=== PATIENT | female | born 1935 | race Caucasian/White ===

== ENCOUNTER 2018-03-12 07:19 | Day surgery (SDC) | payer OTHER, MEDICAID ==
[2018-03-12] MEDS ORDERED: SIMETHICONE 40 MG/0.6 ML ML ONE (07:44)
[2018-03-12] MEDS: MIDAZOLAM HCL 5 MG/5 ML VIAL ONE ×3 (09:04→09:10)
[2018-03-12] MEDS: MEPERIDINE HCL/PF 100 MG/ML AMP ONE ×2 (09:04→09:08)
[2018-03-12 13:23] VITALS: BP_SYST 143
== END 2018-03-12 11:30 | disposition home or self-care (01) ==
LOC: SDS 07:19
PROVIDERS: ATTEND Internal Medicine Gastroenterology
DX: K22.2 Esophageal obstruction (principal); K21.9 Gastro-esophageal reflux disease without esophagitis; K20.9 Esophagitis, unspecified; K29.50 Unspecified chronic gastritis without bleeding; K44.9 Diaphragmatic hernia without obstruction or gangrene; E07.9 Disorder of thyroid, unspecified; D64.9 Anemia, unspecified; K59.00 Constipation, unspecified; J45.909 Unspecified asthma, uncomplicated; E03.9 Hypothyroidism, unspecified; Z87.891 Personal history of nicotine dependence
CPT/HCPCS: 36415; 43239; 43249; 87081; 88305; 88312; 88313; J2175; J2250

== ENCOUNTER 2018-05-21 08:30 | Day surgery (SDC) | payer OTHER, MEDICAID ==
[~2018-05-21] VITALS: Ht 167.6 cm; Wt 54.4 kg
[2018-05-21] MEDS ORDERED: MEPERIDINE HCL/PF 100 MG/ML AMP ONE (09:34)
[2018-05-21] MEDS ORDERED: MIDAZOLAM HCL 5 MG/5 ML VIAL ONE (09:34)
[2018-05-21] MEDS ORDERED: SIMETHICONE 40 MG/0.6 ML ML ONE (09:35)
[2018-05-21] MEDS ORDERED: MEPERIDINE HCL/PF 25 MG/ML DISP.SYRIN ONE (10:03)
[2018-05-21 14:14] VITALS: BP_SYST 138
== END 2018-05-21 11:15 | disposition home or self-care (01) ==
LOC: SDS 08:30 → SMU 08:30 → SDS 11:15
PROVIDERS: ATTEND Internal Medicine Gastroenterology
DX: K22.2 Esophageal obstruction (principal); K44.9 Diaphragmatic hernia without obstruction or gangrene; K20.9 Esophagitis, unspecified; K29.70 Gastritis, unspecified, without bleeding; K21.9 Gastro-esophageal reflux disease without esophagitis; Z79.899 Other long term (current) drug therapy; Z87.891 Personal history of nicotine dependence; M19.90 Unspecified osteoarthritis, unspecified site; E03.9 Hypothyroidism, unspecified
CPT/HCPCS: 43248; J2175; J2250; J7030

== ENCOUNTER → 2018-07-10 | Outpatient (CLI) | payer OTHER, MEDICAID ==
[~2018-07-10] MED LIST: BARIUM SULFATE 135 ML SUSP.RECON (E-Z-HD) PO ONE
== END | disposition home or self-care (01) ==
LOC: SRD 09:18
PROVIDERS: ATTEND Internal Medicine Gastroenterology
DX: K21.9 Gastro-esophageal reflux disease without esophagitis (principal)
CPT/HCPCS: 74220-TC

== ENCOUNTER 2021-08-20 13:12 | Inpatient (IN) | payer OTHER, MEDICAID, SELFPAY ==
[~2021-08-20] VITALS: Ht 165.1 cm; Wt 59.0 kg
[2021-08-20 13:15] VITALS: BP_SYST 161
[2021-08-20] MEDS ORDERED: ONDANSETRON HCL 4 MG/2 ML VIAL ONE (13:35)
[2021-08-20 13:45] LABS: EOSINOPHILS # (AUTO) 0.1 K/uL (0.0-0.4)
[2021-08-20 13:49] LABS: BASOPHILS # (AUTO) 0.1 K/uL (0.0-0.2); BASOPHILS % (AUTO) 0.7 % (0.0-2.0); EOSINOPHILS % (AUTO) 0.9 % (0.0-4.0); HEMATOCRIT 35.5 % (36-48); HEMOGLOBIN 10.9 g/dL (12.0-16.0); LYMPHOCYTES # (AUTO) 3.4 K/uL (1.0-5.5); LYMPHOCYTES % (AUTO) 40.2 % (20.5-51.5); MEAN CORPUSCULAR HEMOGLOBIN 18 pg (27-31); MEAN CORPUSCULAR HGB CONC 31 % (32-36); MEAN CORPUSCULAR VOLUME 58 fL (79.0-98.0); MONOCYTES # (AUTO) 0.5 K/uL (0.0-1.0); MONOCYTES % (AUTO) 6.4 % (1.7-9.3); NEUTROPHILS # (AUTO) 4.4 K/uL (1.8-7.7); NEUTROPHILS % (AUTO) 51.8 % (40.0-70.0); PLATELET COUNT (AUTO) 180 K/uL (130-430); RED BLOOD CELL COUNT(AUTO) 6.15 MIL/uL (4.2-6.2); RED CELL DISTRIBUTION WIDTH 17.4 % (9.0-15.0); WHITE BLOOD COUNT (AUTO) 8.5 K/uL (4.8-10.8)
[2021-08-20 13:59] LABS: ANION GAP 8 (5-15); CALCIUM 9.1 mg/dL (8.4-11.0); CHLORIDE 105 mmol/L (98-107); CREATININE 0.82 mg/dL (0.55-1.30); GLUCOSE 113 mg/dL (70-99); POTASSIUM 4.9 mmol/L (3.5-5.1); SODIUM SERUM 138 mmol/L (136-145); UREA NITROGEN, BLOOD 16 mg/dL (8-21)
[2021-08-20 14:06] LABS: PROTHROMBIN TIME 10.5 SECS (9.5-12.5)
[2021-08-20 14:10] LABS: ALANINE AMINOTRANSFERASE 22 U/L (12-78); ALBUMIN 3.8 g/dL (3.4-4.8); ASPARTATE AMINOTRANSFERASE 19 U/L (10-37); TOTAL BILIRUBIN 0.3 mg/dL (0.0-1.0)
[2021-08-20] MEDS ORDERED: IOHEXOL 350 mgI/mL, 150 ML INFUS..BTL IV ONE (14:28)
[2021-08-20] MEDS ORDERED: ONDANSETRON HCL 4 MG/2 ML VIAL IVP PRN (17:00)
[2021-08-20] MEDS ORDERED: ACETAMINOPHEN 325 MG TABLET PO PRN (17:00)
[2021-08-20] MEDS ORDERED: POTASSIUM CHLORIDE 20 MEQ TAB.PRT.SR PO PRN (17:00)
[2021-08-20] MEDS ORDERED: DOCUSATE SODIUM 100 MG CAPSULE PO PRN (17:00)
[2021-08-20] MEDS ORDERED: MUPIROCIN 2% TOPICAL OINTMENT 22 GM NS PRN (17:00)
[2021-08-20] MEDS ORDERED: ZOLPIDEM TARTRATE 5 MG TABLET PO PRN (17:00)
[2021-08-20] MEDS ORDERED: MORPHINE 2 MG/ML INJ. SYRINGE IVP PRN ×2 (17:00)
[2021-08-20] MEDS ORDERED: MAGNESIUM SULFATE 50 ML IV PRN (17:00)
[2021-08-20] MEDS ORDERED: LORazepam 2 MG/ML VIAL IVP PRN (17:00)
[2021-08-20] MEDS: NACL 0.9% 1,000 ML IV SCH (17:15)
[2021-08-20] MEDS ORDERED: PANTOPRAZOLE SODIUM 40 MG TAB PO ONE (18:15)
[2021-08-20] MEDS ORDERED: LISINOPRIL 10 MG TABLET (PRINIVIL) PO ONE (18:15)
[2021-08-20 18:50] VITALS: BP_SYST 196
[2021-08-20 20:24] VITALS: BP_SYST 165
[2021-08-20 20:32] VITALS: BP_SYST 165
[2021-08-20] MEDS: LISINOPRIL 10 MG TABLET (PRINIVIL) PO SCH (23:27)
[2021-08-21] MEDS ORDERED: *HEPARIN PER PHARMACY XX PRN (00:15)
[2021-08-21 00:17] VITALS: BP_SYST 144
[2021-08-21] MEDS ORDERED: HEPARIN SODIUM,PORCINE 5,000 UNITS/ML VIAL IV SCH (00:30)
[2021-08-21] MEDS ORDERED: HEPARIN SODIUM,PORCINE 2000 UNITS/0.4 ML BOLUS IVP PRN (00:30)
[2021-08-21] MEDS ORDERED: HEPARIN SODIUM,PORCINE 3000 UNITS/0.6 ML BOLUS IVP PRN (00:30)
[2021-08-21] MEDS ORDERED: HEPARIN 25,000 UNITS/D5W 250ML 250 ML IV ONE (00:51)
[2021-08-21] MEDS: HEPARIN 25,000 UNITS in 250 ML PREMIX IV PRN (01:23)
[2021-08-21 04:21] VITALS: BP_SYST 145
[2021-08-21 06:26] LABS: ANION GAP 10 (5-15); CALCIUM 8.7 mg/dL (8.4-11.0); CHLORIDE 107 mmol/L (98-107); CREATININE 0.89 mg/dL (0.55-1.30); GLUCOSE 92 mg/dL (70-99); POTASSIUM 3.6 mmol/L (3.5-5.1); SODIUM SERUM 140 mmol/L (136-145); UREA NITROGEN, BLOOD 13 mg/dL (8-21)
[2021-08-21 07:44] VITALS: BP_SYST 169
[2021-08-21 08:10] LABS: BASOPHILS % (AUTO) 0.6 % (0.0-2.0); EOSINOPHILS % (AUTO) 0.6 % (0.0-4.0); HEMATOCRIT 32.6 % (36-48); HEMOGLOBIN 10.1 g/dL (12.0-16.0); LYMPHOCYTES # (AUTO) 2.2 K/uL (1.0-5.5); LYMPHOCYTES % (AUTO) 27.1 % (20.5-51.5); MEAN CORPUSCULAR HEMOGLOBIN 18 pg (27-31); MEAN CORPUSCULAR HGB CONC 31 % (32-36); MEAN CORPUSCULAR VOLUME 57 fL (79.0-98.0); MONOCYTES # (AUTO) 0.6 K/uL (0.0-1.0); MONOCYTES % (AUTO) 6.9 % (1.7-9.3); NEUTROPHILS # (AUTO) 5.2 K/uL (1.8-7.7); NEUTROPHILS % (AUTO) 64.8 % (40.0-70.0); PLATELET COUNT (AUTO) 147 K/uL (130-430); RED BLOOD CELL COUNT(AUTO) 5.68 MIL/uL (4.2-6.2); RED CELL DISTRIBUTION WIDTH 17.3 % (9.0-15.0)
[2021-08-21] MEDS: LISINOPRIL 10 MG TABLET (PRINIVIL) PO SCH ×2 (08:21→22:26)
[2021-08-21] MEDS: PANTOPRAZOLE SODIUM 40 MG/VIAL (PROTONIX) IVP SCH ×2 (08:22→22:22)
[2021-08-21] MEDS ORDERED: PANTOPRAZOLE SODIUM 40 MG TAB PO SCH (09:00)
[2021-08-21] MEDS: cloNIDine HCL 0.1 MG TABLET PO PRN (11:49)
[2021-08-21 11:59] VITALS: BP_SYST 203
[2021-08-21 12:52] LABS: TOTAL IRON BIND. CAPACITY 315 ug/dL (250-450)
[2021-08-21 16:09] VITALS: BP_SYST 107
[2021-08-21] MEDS: NACL 0.9% 1,000 ML IV SCH (17:14)
[2021-08-21 20:51] VITALS: BP_SYST 98
[2021-08-22 00:43] VITALS: BP_SYST 100
[2021-08-22] MEDS: NACL 0.9% 1,000 ML IV SCH (02:35)
[2021-08-22 06:35] LABS: BASOPHILS % (AUTO) 0.3 % (0.0-2.0); EOSINOPHILS # (AUTO) 0.1 K/uL (0.0-0.4); EOSINOPHILS % (AUTO) 1.5 % (0.0-4.0); HEMATOCRIT 28.7 % (36-48); LYMPHOCYTES # (AUTO) 2.1 K/uL (1.0-5.5); LYMPHOCYTES % (AUTO) 34.5 % (20.5-51.5); MEAN CORPUSCULAR HEMOGLOBIN 18 pg (27-31); MEAN CORPUSCULAR HGB CONC 31 % (32-36); MEAN CORPUSCULAR VOLUME 57 fL (79.0-98.0); MONOCYTES # (AUTO) 0.5 K/uL (0.0-1.0); MONOCYTES % (AUTO) 7.7 % (1.7-9.3); NEUTROPHILS # (AUTO) 3.4 K/uL (1.8-7.7); PLATELET COUNT (AUTO) 166 K/uL (130-430); RED BLOOD CELL COUNT(AUTO) 5.04 MIL/uL (4.2-6.2); RED CELL DISTRIBUTION WIDTH 17.3 % (9.0-15.0)
[2021-08-22 07:03] LABS: ANION GAP 10 (5-15); CALCIUM 8.5 mg/dL (8.4-11.0); CHLORIDE 108 mmol/L (98-107); CREATININE 0.83 mg/dL (0.55-1.30); GLUCOSE 102 mg/dL (70-99); POTASSIUM 4.1 mmol/L (3.5-5.1); SODIUM SERUM 140 mmol/L (136-145); UREA NITROGEN, BLOOD 19 mg/dL (8-21)
[2021-08-22 07:07] LABS: FOLATE (FOLIC ACID) 5.2 ng/mL (>3.0)
[2021-08-22] MEDS: HEPARIN 25,000 UNITS in 250 ML PREMIX IV PRN (07:28)
[2021-08-22 07:47] VITALS: BP_SYST 182
[2021-08-22] MEDS: PANTOPRAZOLE SODIUM 40 MG/VIAL (PROTONIX) IVP SCH (08:08)
[2021-08-22] MEDS: cloNIDine HCL 0.1 MG TABLET PO PRN ×2 (08:09→13:47)
[2021-08-22] MEDS: LISINOPRIL 10 MG TABLET (PRINIVIL) PO SCH (08:09)
[2021-08-22] MEDS ORDERED: DONE-49 PO (09:01)
[2021-08-22] MEDS ORDERED: ASPI-1393 PO (09:01)
[2021-08-22 12:05] VITALS: BP_SYST 161
[2021-08-22 14:34] VITALS: BP_SYST 138
[2021-08-22] MEDS ORDERED: TRAM50TA2 PO (16:02)
== END 2021-08-22 15:30 | disposition home health service (06) | DRG 73 ==
LOC: SED 13:12 → STU 17:04
PROVIDERS: ADMIT General Practice; ATTEND General Practice
PROC: 4A10X4Z Monitoring of Central Nervous Electrical Activity, External Approach (ICD-10-PCS; principal; 2021-08-21)
DX: G90.8 Other disorders of autonomic nervous system (principal); I21.A1 Myocardial infarction type 2; K92.0 Hematemesis; R47.01 Aphasia; D50.9 Iron deficiency anemia, unspecified; G30.9 Alzheimer's disease, unspecified; F02.80 Dementia in other diseases classified elsewhere, unspecified severity, without behavioral disturbance, psychotic disturbance, mood disturbance, and anxiety; M79.7 Fibromyalgia; I10 Essential (primary) hypertension; K40.90 Unilateral inguinal hernia, without obstruction or gangrene, not specified as recurrent; Z20.822 Contact with and (suspected) exposure to COVID-19; K44.9 Diaphragmatic hernia without obstruction or gangrene; Z79.899 Other long term (current) drug therapy
CPT/HCPCS: 36415; 70450-TC; 70496; 70498; 70551; 71045; 76376; 80048; 80053; 82550; 82607; 82728; 82746; 83540; 83550; 83605; 83735; 83880; 84484; 85025; 85610-TC; 85730-TC; 86886; 86900; 86901; 93005; 93306; 95816; 99285; C9113; G0378; J1644; J2060; J2405; Q9967